=== PATIENT | male | born 1965 | race Caucasian/White ===

== ENCOUNTER 2023-07-19 13:04 | Emergency (ER) | payer MEDICAID ==
[~2023-07-19] VITALS: Ht 177.8 cm; Wt 101.2 kg
[~2023-07-19 13:04] MED LIST: ASPI81TA52 PO; GABA-530 PO; LANTUS SQ; LISI40TA13 PO; METF1000 PO; SITA50TA7 PO
[2023-07-19 13:09] VITALS: TEMP 98
[2023-07-19] MEDS ORDERED: VALA100031 PO (14:07)
[2023-07-19] MEDS ORDERED: PRED10TA23 PO (14:07)
[2023-07-19 14:17] VITALS: BP 186/113; PULSE 102; O2SAT 97
[2023-07-19 14:22] VITALS: RESP 16
== END 2023-07-19 14:28 | disposition home or self-care (01) ==
LOC: ER 13:04
DX: G51.0 Bell's palsy (principal); Z88.5 Allergy status to narcotic agent; Z79.899 Other long term (current) drug therapy
CPT/HCPCS: 70450; 71045; 82948; 99284

== ENCOUNTER 2024-01-23 21:19 | Emergency (ER) | payer MEDICAID ==
[~2024-01-23] VITALS: Ht 177.8 cm; Wt 95.0 kg
[~2024-01-23 21:19] MED LIST changes: +VALA100031 PO
[2024-01-23 21:56] LABS: BASOPHILS # (AUTO) 0.1 X10'3 (0-0.2); BASOPHILS % (AUTO) 0.5 % (0-1); EOSINOPHILS % (AUTO) 0.2 % (0-6); HEMATOCRIT 43.6 % (42.0-52.0); HEMOGLOBIN 14.2 g/dl (14.0-17.9); LYMPHOCYTES # (AUTO) 0.9 X10'3 (1.1-4.8); LYMPHOCYTES % (AUTO) 6.9 % (21-51); MEAN CORPUSCULAR HEMOGLOBIN 28.4 PG (27.0-31.0); MEAN CORPUSCULAR HGB CONC 32.6 g/dL (33.0-36.5); MEAN CORPUSCULAR VOLUME 87.2 FL (78-98); MEAN PLATELET VOLUME 9.6 FL (7.4-10.4); MONOCYTES # (AUTO) 0.9 X10'3 (0-0.9); MONOCYTES % (AUTO) 6.9 % (2-12); NEUTROPHILS # (AUTO) 11.3 X10'3 (1.8-7.7); NEUTROPHILS % (AUTO) 85.5 % (42-75); PLATELET COUNT 178 X10'3 (140-440); RED CELL DISTRIBUTION WIDTH 13.8 % (11.5-14.5); WHITE BLOOD COUNT 13.2 X10'3 (4.5-11.0)
[2024-01-23 22:06] LABS: ALBUMIN 3.7 G/DL (3.4-5.0); ANION GAP 13 (8-16); BLOOD UREA NITROGEN 19 MG/DL (7-18); BUN/CREATININE RATIO 14.2 (10.0-20.0); CALCIUM 9.2 MG/DL (8.5-10.1); CHLORIDE 102 MMOL/L (99-107); CREATININE 1.34 MG/DL (0.60-1.10); GLUCOSE 300 MG/DL (70-104); LIPASE 30 U/L (16-77); MAGNESIUM 1.9 MG/DL (1.5-2.4); POTASSIUM 3.2 MMOL/L (3.5-5.1); SODIUM 141 MMOL/L (135-145); TOTAL CARBON DIOXIDE 26.5 MMOL/L (24-32); eCRCL 63 ML/MIN; eGFR 55 ML/MIN
[2024-01-23 22:14] LABS: ETHANOL < 10 MG/DL (<10)
[2024-01-23] MEDS: normal saline 1000ML IV soln IVB ONE (22:35)
[2024-01-23] MEDS: ondansetron/PF 4mg/2ml inj IV ONE (22:36)
[2024-01-24 00:27] LABS: BILIRUBIN,URINE NEGATIVE (Neg); CLARITY,URINE CLEAR (Clear); COLOR,URINE STRAW (Yellow); GLUCOSE, URINE >=1000 mg/dl (Neg); KETONES,URINE 15 mg/dl (Neg); LEUKOCYTE ESTERASE ,URINE NEGATIVE (Neg); NITRITES, URINE NEGATIVE (Neg); OCCULT BLOOD,URINE NEGATIVE (Neg); PROTEIN,URINE TRACE mg/dl (Neg); UROBILINOGEN,URINE 0.2 E.U/dL (0.2-1.0)
[2024-01-24 00:34] LABS: UA COLLECTION TYPE VOIDED
[2024-01-24 00:36] LABS: BACTERIA,URINE FEW /HPF (Neg); RBC,URINE 0-2 /HPF (0-2); SQUAMOUS EPITHELIAL CELL,UR FEW /LPF (FEW); WBC,URINE 0-4 /HPF (0-4)
[2024-01-24 01:09] LABS: ALANINE AMINOTRANSFERASE 23 U/L (12-78); ALKALINE PHOSPHATASE 105 IU/L (46-116); ASPARTATE AMINO TRANSFERASE 15 U/L (10-37); BILIRUBIN,DIRECT 0.1 MG/DL (0-0.3); BILIRUBIN,TOTAL 0.3 MG/DL (0.1-1.0); TOTAL PROTEIN 7.5 G/DL (6.4-8.2)
[2024-01-24] MEDS ORDERED: ONDA-243 PO (01:15)
[2024-01-24 01:30] VITALS: BP 166/93; PULSE 93; RESP 16; TEMP 97.9; O2SAT 98
== END 2024-01-24 01:32 | disposition home or self-care (01) ==
LOC: ER 21:20
DX: A05.9 Bacterial foodborne intoxication, unspecified (principal); R11.10 Vomiting, unspecified; I10 Essential (primary) hypertension; E11.9 Type 2 diabetes mellitus without complications; Z88.5 Allergy status to narcotic agent; Z79.82 Long term (current) use of aspirin; Z79.4 Long term (current) use of insulin; Z79.899 Other long term (current) drug therapy; Z79.84 Long term (current) use of oral hypoglycemic drugs
CPT/HCPCS: 36415; 80048; 80076; 80320; 81001; 83690; 83735; 85025; 93005; 96361; 96374; 99284; J2405; J7030